=== PATIENT | male | born 1945 | race Caucasian/White ===

== ENCOUNTER 2020-04-09 07:12 | Day surgery (SDC) | payer OTHER ==
[~2020-04-09] VITALS: Ht 180.3 cm; Wt 68.4 kg
--- NOTE | 2020-04-09 07:59 | NUR ---
History, Chart, Medications and Allergies reviewed before start of procedure. Lungs clear T/O to Auscultation. Patient confirms NPO status and agrees with scheduled surgery. Pre-Op teaching done. Pt verbalizes understanding. Patient reports completing Chlorhexadine shower X2 prior to admission to hospital.
--- NOTE | 2020-04-09 12:17 | NUR ---
PATIENT GAVE PERMISSION TO GIVE CARE
--- NOTE | 2020-04-09 18:47 | NUR ---
PT ARRIVED TO THE ROOM AT APPROXIMATELY 1230. PT DROWSY BUT ORIENTED. HE RATED PAIN AT 5/10 BUT TOLERABLE. DRESSING C/D/I TO LEFT HIP. DENIED NAUSEA. RR EVEN AND UNLABORED. VSS.
--- NOTE | 2020-04-09 19:18 | NUR ---
SHIFT SUMMARY PT IS POD#0 FROM [place] WITH DR. CENTENO. PAIN HAS BEEN MANAGED WITH PO PAIN MEDICATION. PT WORKED WITH THERAPY, HE REPOTED PAIN IMPROVED AFTER THERAPY. PT TOLERATING PO AND ABLE TO VOID. VSS. REPORT GIVEN TO GOSIA BREWER.
[2020-04-10 04:25] LABS: BASOPHILS ABSOLUTE AUTO 0.01 K/mm3 (0.00-0.23); BASOPHILS PERCENT AUTO 0 % (0-2); EOSINOPHILS ABSOLUTE AUTO 0.03 K/mm3 (0.00-0.68); EOSINOPHILS PERCENT AUTO 0 % (0-6); Hematocrit 34.9 % (37.0-53.0); Hemoglobin 11.4 g/dL (13.5-17.5); IMMATURE GRAN ABSOLUTE AUTO 0.04 K/mm3 (0.00-0.10); IMMATURE GRAN PERCENT AUTO 0 % (0-1); LYMPHOCYTES ABSOLUTE AUTO 1.19 K/mm3 (0.84-5.20); LYMPHOCYTES PERCENT AUTO 10 % (21-46); MONOCYTES ABSOLUTE AUTO 1.23 K/mm3 (0.16-1.47); MONOCYTES PERCENT AUTO 11 % (4-13); Mean Corpuscular HGB 28.3 pg (26.0-34.0); Mean Corpuscular HGB Conc 32.7 g/dL (31.5-36.5); Mean Corpuscular Volume 87 fL (80-100); Mean Platelet Volume 10.9 fL (9.1-12.4); NEUTROPHILS ABSOLUTE AUTO 8.89 K/mm3 (1.96-9.15); NEUTROPHILS PERCENT AUTO 78 % (41-73); Platelet Count 132 K/mm3 (150-400); RDW Coefficient Variation 12.7 % (11.7-14.2); Red Blood Cell Count 4.03 M/mm3 (4.30-5.90); White Blood Cell Count 11.39 K/mm3 (4.00-11.30)
[2020-04-10 04:42] LABS: Anion Gap 5 mmol/L (6-16); Blood Urea Nitrogen 16 mg/dL (8-24); Bun/Creatinine Ratio 21.8 (12.0-20.0); CO2, Blood 28 mmol/L (21-32); Chloride, Blood 109 mmol/L (98-108); Creatinine, Blood 0.73 mg/dL (0.60-1.20); Glomerular Filtration Rate >60 (60-); Glucose, Blood 114 mg/dL (70-99); Sodium, Blood 142 mmol/L (136-145)
--- NOTE | 2020-04-10 06:35 | NUR ---
POD 1 S/P RIGHT JESSENIA. PT VSS T/O NIGHT. DRESSING CDI. PT REP PAIN MINIMAL, MGD W/SCHEDULED TYLENOL/TORADOL; OXYCODONE GIVEN X1. PT DANGELED AT SOB, BUT DECLINED OFFERS TO AMBULATE, STATES IS DOING ROM EXERCISES IN BED; EDUCATION PROVIDED. PT LAURIE REG PO, NO N/V, IS VOIDING CLEAR YELLOW URINE W/O DIFFICULTY. PLAN TO WORK W/PT THIS AM.
--- NOTE | 2020-04-10 07:51 | NUR ---
A&O X3, DENIES ANY NEED FOR PAIN MEDS AT THIS TIME, DSG C/D/I, CONT. TO MONITOR FOR ANY CHANGES.
--- NOTE | 2020-04-10 08:05 | NUR ---
04/10/20 0805 Rosi Helton VERIFICATIONS: EDIT CHART.
[2020-04-10] MEDS ORDERED: ACET500 PO (10:34)
[2020-04-10] MEDS ORDERED: ASPIR 8181 M1 PO (10:37)
[2020-04-10] MEDS ORDERED: OXYC5 PO (10:38)
--- NOTE | 2020-04-10 10:53 | NUR ---
OOB TO CHAIR, CLEARED TO GO HOME PER PT, DENIES ANY PAIN, DC INSTRUCTIONS GIVEN, VERBALIZED UNDERSTANDING, IV DC'D CATH INTACT, PT WAITING FOR RIDE HOME.
--- NOTE | 2020-04-10 13:14 | NUR ---
pt provided with discharge instructions, peripheral IV removed WNL. pt's belongings transferred with pt via wheelchair to awaiting vehicle.
== END 2020-04-10 13:00 | disposition home or self-care (01) ==
LOC: ORSCMMR 07:12 → ORD 07:30 → SURS 12:05 → ORSCMMR 04-10 13:00
PROVIDERS: Orthopaedic Surgery
PROC: 0SRB06Z Replacement of Left Hip Joint with Oxidized Zirconium on Polyethylene Synthetic Substitute, Open Approach (ICD-10-PCS; principal; 2020-04-09 07:30)
DX: M16.12 Unilateral primary osteoarthritis, left hip (principal)
CPT/HCPCS: 36415; 72170; 80048; 83735; 85025; 88300; 97110; 97116; 97162; A9270; C1776; J0171; J0690; J0735; J1100; J1885; J2250; J2370; J2405; J2550; J2704; J2795; J3010; J7120

== ENCOUNTER 2021-01-12 18:13 | Emergency (ER) | payer OTHER ==
[~2021-01-12] VITALS: Ht 177.8 cm; Wt 63.5 kg
[~2021-01-12 18:13] MED LIST: ACET500 PO; ASPIR 8181 M1 PO; OXYC5 PO
== END 2021-01-12 21:30 | disposition home or self-care (01) ==
LOC: ER 18:13
DX: K59.00 Constipation, unspecified (principal)
CPT/HCPCS: 99283

== ENCOUNTER 2021-02-08 16:04 | Inpatient (IN) | payer OTHER ==
[~2021-02-08] VITALS: Ht 177.8 cm; Wt 63.5 kg
[2021-02-08] MEDS ORDERED: MS CONTIN30 M6 PO (17:00)
[2021-02-08] MEDS ORDERED: NARCAN4 M1 (17:00)
[2021-02-08] MEDS ORDERED: OXYCODONE-ACET1 EAC2 PO (17:00)
[2021-02-08 17:01] LABS: BASOPHILS ABSOLUTE AUTO 0.02 K/mm3 (0.00-0.23); BASOPHILS PERCENT AUTO 0 % (0-2); EOSINOPHILS PERCENT AUTO 0 % (0-6); Hematocrit 31.8 % (37.0-53.0); Hemoglobin 10.5 g/dL (13.5-17.5); IMMATURE GRAN ABSOLUTE AUTO 0.17 K/mm3 (0.00-0.10); IMMATURE GRAN PERCENT AUTO 1 % (0-1); LYMPHOCYTES PERCENT AUTO 2 % (21-46); MONOCYTES ABSOLUTE AUTO 1.81 K/mm3 (0.16-1.47); MONOCYTES PERCENT AUTO 8 % (4-13); Mean Corpuscular HGB 24.9 pg (26.0-34.0); Mean Corpuscular Volume 75 fL (80-100); NEUTROPHILS ABSOLUTE AUTO 19.29 K/mm3 (1.96-9.15); NEUTROPHILS PERCENT AUTO 89 % (41-73); Platelet Count 419 K/mm3 (150-400); RDW Coefficient Variation 14.4 % (11.7-14.2); RDW Standard Deviation 38.7 fL (35.1-46.3); Red Blood Cell Count 4.22 M/mm3 (4.30-5.90); White Blood Cell Count 21.79 K/mm3 (4.00-11.30)
[2021-02-08 17:09] LABS: International Normalized Ratio 1.28; Prothrombin Time Results 13.2 Sec (9.7-11.5)
[2021-02-08 17:20] LABS: Alanine Aminotransfer (ALT/SGP 62 U/L (12-78); Albumin, Blood 1.8 g/dL (3.4-5.0); Albumin/Globulin Ratio 0.3 (0.8-1.8); Alk Phos 180 U/L (50-136); Anion Gap 6 mmol/L (6-16); Aspartate Aminotrans (AST/SGOT 85 U/L (12-37); Bilirubin, Total 0.5 mg/dL (0.1-1.0); Blood Urea Nitrogen 26 mg/dL (8-24); Bun/Creatinine Ratio 33.1 (12.0-20.0); CO2, Blood 28 mmol/L (21-32); Calcium, Blood 8.7 mg/dL (8.5-10.1); Chloride, Blood 93 mmol/L (98-108); Creatinine, Blood 0.79 mg/dL (0.60-1.20); Globulin, Blood 5.2 g/dL (2.2-4.0); Glomerular Filtration Rate >60 (60-); Glucose, Blood 149 mg/dL (70-99); Potassium, Blood 4.9 mmol/L (3.5-5.5); Sodium, Blood 127 mmol/L (136-145)
[2021-02-08 17:30] LABS: Influenza A, PCR NEGATIVE (NEGATIVE); Influenza B, PCR NEGATIVE (NEGATIVE); Resp Syncytial Virus, PCR NEGATIVE (NEGATIVE); SARS-Cov-2 (COVID-19) PCR, MMC NEGATIVE (NEGATIVE)
[2021-02-08 18:07] LABS: Source, Urine Catheter
[2021-02-08 18:10] LABS: Bilirubin, Urine Neg (Neg); Blood, Urine 5+ (Neg); Color, Urine Amber (P-Yellow); Glucose Qualitative, Urine Neg (Neg); Ketones, Urine Neg (Neg); Leukocyte Esterase, Urine 1+ (Neg); Nitrite, Urine Neg (Neg); Protein, Urine 2+ (Neg); Specific Gravity, Urine 1.025 (1.003-1.022); Urobilinogen, Urine 1+ (Normal)
[2021-02-08 18:40] LABS: Appearance, Urine Hazy (Clear)
[2021-02-08 18:42] LABS: Amorphous Light (0-Heavy); Bacteria Mod /hpf; Mucus Light (0-Heavy); Squamous Epithelial Cells Rare /hpf (Few)
[2021-02-08 18:43] LABS: Hyaline Casts 0-2 /lpf (0-2)
[2021-02-09 04:35] LABS: Hematocrit 29.1 % (37.0-53.0); Hemoglobin 9.4 g/dL (13.5-17.5); Mean Corpuscular HGB 24.7 pg (26.0-34.0); Mean Corpuscular HGB Conc 32.3 g/dL (31.5-36.5); Mean Corpuscular Volume 76 fL (80-100); Mean Platelet Volume 9.2 fL (9.1-12.4); Platelet Count 377 K/mm3 (150-400); RDW Coefficient Variation 14.5 % (11.7-14.2); RDW Standard Deviation 39.8 fL (35.1-46.3); Red Blood Cell Count 3.81 M/mm3 (4.30-5.90); White Blood Cell Count 19.59 K/mm3 (4.00-11.30)
[2021-02-09 04:50] LABS: Alanine Aminotransfer (ALT/SGP 58 U/L (12-78); Albumin, Blood 1.7 g/dL (3.4-5.0); Albumin/Globulin Ratio 0.4 (0.8-1.8); Alk Phos 157 U/L (50-136); Anion Gap 9 mmol/L (6-16); Aspartate Aminotrans (AST/SGOT 69 U/L (12-37); Bilirubin, Total 0.6 mg/dL (0.1-1.0); Blood Urea Nitrogen 24 mg/dL (8-24); Bun/Creatinine Ratio 34.2 (12.0-20.0); CO2, Blood 27 mmol/L (21-32); Calcium, Blood 8.7 mg/dL (8.5-10.1); Chloride, Blood 95 mmol/L (98-108); Globulin, Blood 4.6 g/dL (2.2-4.0); Glomerular Filtration Rate >60 (60-); Glucose, Blood 120 mg/dL (70-99); Potassium, Blood 4.4 mmol/L (3.5-5.5); Sodium, Blood 131 mmol/L (136-145); Total Protein, Blood 6.3 g/dL (6.4-8.2)
--- NOTE | 2021-02-09 13:48 | NUR ---
Pt resting in bed with his eyes closed. Pt wakes to gentle verbal stimuli. Pt reports 4/10 pain in his back. Pt denies anxiety. Pt appears mildy dyspneic as evidenced by speaking in 2 to 3 word sentences and work of breathing during conversation. Pt reports no being and has children but has not been in contact with in quite some time. He does not wish to elaborate or have further conversations regarding family. He reports having a friend that comes and checks in on him. Pt appears elusive when sharing personal information. Listened as Pt reports no about the cancer since mid summer and has been waiting on specialist with answers and recommendations. Pt does report plan to pursue treatment if treatment option is available. Pt agreeable for continued visits. Ended visit to allow Pt to rest. Palliative Care will remain available.
--- NOTE | 2021-02-09 17:08 | NUR ---
Pt is A&O4, forgetful at times. IV fluids running at 100ml/hr NS. IV abx continued per orders. VSS on 6-8L, titrated down to 6L sating low-mid 90s. Pt hasn't been able to produce sputum sample yet to send, specimen container at bedside. Palliative care RN visited with pt, pt didn't want to talk much about home situation and goals. Palliative will visit with pt again tomorrow. Pt JUSTO Piedra) visited today and was updated. Tele: sinus tach 90-100s.
[2021-02-10 04:40] LABS: BASOPHILS ABSOLUTE AUTO 0.02 K/mm3 (0.00-0.23); BASOPHILS PERCENT AUTO 0 % (0-2); EOSINOPHILS ABSOLUTE AUTO 0.03 K/mm3 (0.00-0.68); EOSINOPHILS PERCENT AUTO 0 % (0-6); Hematocrit 28.3 % (37.0-53.0); Hemoglobin 8.9 g/dL (13.5-17.5); IMMATURE GRAN ABSOLUTE AUTO 0.17 K/mm3 (0.00-0.10); IMMATURE GRAN PERCENT AUTO 1 % (0-1); LYMPHOCYTES ABSOLUTE AUTO 0.66 K/mm3 (0.84-5.20); LYMPHOCYTES PERCENT AUTO 3 % (21-46); MONOCYTES ABSOLUTE AUTO 1.71 K/mm3 (0.16-1.47); MONOCYTES PERCENT AUTO 8 % (4-13); Mean Corpuscular HGB 24.5 pg (26.0-34.0); Mean Corpuscular HGB Conc 31.4 g/dL (31.5-36.5); Mean Corpuscular Volume 78 fL (80-100); Mean Platelet Volume 9.2 fL (9.1-12.4); NEUTROPHILS ABSOLUTE AUTO 19.67 K/mm3 (1.96-9.15); NEUTROPHILS PERCENT AUTO 88 % (41-73); Platelet Count 370 K/mm3 (150-400); RDW Coefficient Variation 14.6 % (11.7-14.2); RDW Standard Deviation 41.4 fL (35.1-46.3); Red Blood Cell Count 3.63 M/mm3 (4.30-5.90); White Blood Cell Count 22.26 K/mm3 (4.00-11.30)
[2021-02-10 05:41] LABS: Alanine Aminotransfer (ALT/SGP 55 U/L (12-78); Albumin, Blood 1.8 g/dL (3.4-5.0); Albumin/Globulin Ratio 0.4 (0.8-1.8); Alk Phos 167 U/L (50-136); Anion Gap 11 mmol/L (6-16); Aspartate Aminotrans (AST/SGOT 60 U/L (12-37); Bilirubin, Total 0.5 mg/dL (0.1-1.0); Blood Urea Nitrogen 22 mg/dL (8-24); Bun/Creatinine Ratio 39.6 (12.0-20.0); CO2, Blood 24 mmol/L (21-32); Calcium, Blood 8.3 mg/dL (8.5-10.1); Chloride, Blood 99 mmol/L (98-108); Creatinine, Blood 0.56 mg/dL (0.60-1.20); Glomerular Filtration Rate >60 (60-); Glucose, Blood 132 mg/dL (70-99); Potassium, Blood 4.7 mmol/L (3.5-5.5); Sodium, Blood 134 mmol/L (136-145); Total Protein, Blood 5.8 g/dL (6.4-8.2)
[2021-02-10 05:46] LABS: C-REACTIVE PROTEIN, EXT RANGE >19.000 mg/dL (0.000-0.300)
--- NOTE | 2021-02-10 15:06 | NUR ---
Met with Pt's JUSTO James in PC office and discussed plan to present options for Pt. Offered therapeutic listening and answered questions. Jacob reports that hospice would be appropriate but would also like to allow Pt to make decision on whether to pursue cancer treament or hospice. Pt resting in bed upon arrival. Primary RN Blade offering pain medication. Engaged in therapeutic discussion regarding goals of care including options. Gentle and brief edcuation regarding hospice philosophy. Jacob assists with directing Pt to stay on topic and to give direct answers. Pt does appear to understand options presented to him just appears to be slow in response. After a lengthy discussion Pt reports wishes to obtain more information and would like to wait for Dr Bassett's input and results of biopsy obtained from urology last week. Offered therapeutic listening and answered questions. Ended visit to allow Pt to visit withsaul James. Spoke with Dr Dupree and discussed case. Palliative Care will remain available for supportive and therapeutic visits.
--- NOTE | 2021-02-10 16:53 | NUR ---
SHIFT SUMMARY PT HAS BEEN RESTING IN BED FOR THE MAJORITY OF THE DAY. THERAPIES GOT THE PT UP TO THE CHAIR FOR A SHORT PERIOD OF TIME, UNTIL THE PT REQUESTED ASSISTANCE TO RETURN TO BED. PT CONTINUALLY CALLS FOR PAIN MEDICATION, EVEN MINUTES AFTER RECIEVING PAIN MANAGEMENT MEDICATION. PT IS FORGETFUL, FREQUENT REMINDING OF THE LAST DOSE OF MEDICATION AND THE TIME THAT THE NEXT DOSE IS AVAILABLE HAS BEEN REQUIRED. PT IS A&O X4, SOME CONVERSATION IS OUT OF CONTEXT BUT INTELLIGBLE. PT HAS REMAINED >93% SpO2 ON 6L NC. NO ACUTE CHANGES TO CONDITION.
[2021-02-11 05:04] LABS: BASOPHILS ABSOLUTE AUTO 0.03 K/mm3 (0.00-0.23); BASOPHILS PERCENT AUTO 0 % (0-2); EOSINOPHILS ABSOLUTE AUTO 0.02 K/mm3 (0.00-0.68); EOSINOPHILS PERCENT AUTO 0 % (0-6); Hematocrit 27.1 % (37.0-53.0); Hemoglobin 8.5 g/dL (13.5-17.5); IMMATURE GRAN ABSOLUTE AUTO 0.14 K/mm3 (0.00-0.10); IMMATURE GRAN PERCENT AUTO 1 % (0-1); LYMPHOCYTES ABSOLUTE AUTO 0.39 K/mm3 (0.84-5.20); LYMPHOCYTES PERCENT AUTO 2 % (21-46); MONOCYTES ABSOLUTE AUTO 1.29 K/mm3 (0.16-1.47); MONOCYTES PERCENT AUTO 7 % (4-13); Mean Corpuscular HGB 24.4 pg (26.0-34.0); Mean Corpuscular HGB Conc 31.4 g/dL (31.5-36.5); Mean Corpuscular Volume 78 fL (80-100); Mean Platelet Volume 9.3 fL (9.1-12.4); NEUTROPHILS ABSOLUTE AUTO 17.36 K/mm3 (1.96-9.15); NEUTROPHILS PERCENT AUTO 90 % (41-73); Platelet Count 376 K/mm3 (150-400); RDW Coefficient Variation 14.9 % (11.7-14.2); RDW Standard Deviation 41.7 fL (35.1-46.3); Red Blood Cell Count 3.48 M/mm3 (4.30-5.90); White Blood Cell Count 19.23 K/mm3 (4.00-11.30)
[2021-02-11 05:24] LABS: Alanine Aminotransfer (ALT/SGP 48 U/L (12-78); Albumin, Blood 1.6 g/dL (3.4-5.0); Albumin/Globulin Ratio 0.4 (0.8-1.8); Alk Phos 155 U/L (50-136); Anion Gap 7 mmol/L (6-16); Aspartate Aminotrans (AST/SGOT 48 U/L (12-37); Bilirubin, Total 0.4 mg/dL (0.1-1.0); Blood Urea Nitrogen 21 mg/dL (8-24); Bun/Creatinine Ratio 42.8 (12.0-20.0); CO2, Blood 29 mmol/L (21-32); Calcium, Blood 8.6 mg/dL (8.5-10.1); Chloride, Blood 102 mmol/L (98-108); Creatinine, Blood 0.49 mg/dL (0.60-1.20); Globulin, Blood 4.4 g/dL (2.2-4.0); Glomerular Filtration Rate >60 (60-); Glucose, Blood 129 mg/dL (70-99); Phosphorus, Blood 3.3 mg/dL (2.5-4.9); Potassium, Blood 4.2 mmol/L (3.5-5.5); Sodium, Blood 138 mmol/L (136-145)
--- NOTE | 2021-02-11 16:35 | NUR ---
Joint visit with Dr Dupree, this RN, and Primary RN Lakisha. Dr Dupree discusses results of CT which show chet to the brain. Dr Dupree discusses the plan to continue treating the pneumonia and the importance of considering comfort care and hospice. This RN educates on comfort care philosophy. Pt's POA Maira (Jacob) and OSMAN Banuelos report Pt has been hallucinating. Pt's confusion has also increased. Pt remains silent during visit. Maira requests to speak to Dr Conti before making the decision for comfort care. Lakisha will call Dr Bassett's office with Maira's request. Palliative Care will remain available.
--- NOTE | 2021-02-11 17:53 | NUR ---
SHIFT SUMMARY PT [place], A&O TO SELF & FAMILY, DISORIENTED TO PLACE & TIME. PT W/ CONFUSION PROGRESSING T/O SHIFT & NEWLY HALLUCINATING. PT GRABBING INVISIBLE ITEMS, WRAPPING ITEMS IN FIGURATIVE BALL, THEN MAKING GESTURES IF TOSSING ITEMS. PT SITTING UP AT EDGE OF BED, ABLE TO HAVE SIMPLE DISCUSSIONS & USE URINAL APPROPRIATELY UPON CARE ASSUMPTION. T/O SHIFT PT GETTING UP, SETTING OFF BED ALARM FREQUENTLY. PT FOUND UNSTEADY ON FEET, STANDING IN RM AT BEDSIDE, PULLING AT OXYGEN ON WALL. MD ESCOBEOD W/ ORDER FOR KENNY VEST RESTRAINT. MD CENTENO IN TO SEE PT TODAY W/ NEW ORDER FOR HEAD CT. HEAD CT DONE. MD ISTRATE & PALLIATIVE CARE RN EVELIA IN TO PT TO DISCUSS RESULTS W/ PT & PT S/O AT BEDSIDE. PT S/O WISHING TO SPEAK W/ MD CENTENO BEFORE CHANGING CODE STATUS &/OR PROGRESSING TO COMFORT CARE OR HOSPICE. MD CENTENO NOTIFIED OF PT S/O REQUEST. PT CONFUSION INCREASING, PT NO LONGER CONTINENT, SOILING ATTENDS & BECOMING AGGITATED W/ CARE. PRN ATIVAN AVAILABLE PER EMAR, GIVEN X2 THIS SHIFT W/ SOME IMPROVEMENT. SPO2 > 90% ON 10L HI-KASSY NC. TELEMETRY SHOWING ST, HR 100-120's. BED ALARM/TAB ALARM ON T/O SHIFT. PT S/O REMAINS AT BEDSIDE.
--- NOTE | 2021-02-11 19:18 | NUR ---
COMFORT CARE MD CENTENO SPOKE W/ PT S/O JA. PT NOW COMFORT CARE STATUS.
--- NOTE | 2021-02-11 21:42 | NUR ---
PT ARRIVED ON THE UNIT VIA BED WITH FAMILY PRESENT. PT. APPEARS TO BE SOB AND WANTED MORE BLANKETS. PT WAS WARM TO TOUCH AND GRUGLING SECRETIONS NOTICED. MEDICATIONS RUNNING PER EMAR AND PT. ADJUSTED FOR COMFORT. WILL CONTINUE TO MONITOR THIS SHIFT.
--- NOTE | 2021-02-11 23:23 | NUR ---
PT. FOUND ON THE FLOOR BY STAFF WHILE THIS NURSE WAS ASSITING ANOTHER PT. WITH LUMP RECEIVER. PT. HAD FAMILY IN THE ROOM PRIOR TO THE FALL AND STAFF NOTICED BED ALARM WAS TURNED OFF, AFTER BEING PLACE ON AND VEST RESTRAINT APPLIED. IT WAS REPORT ONE SIDE OF VEST WAS STILL TIED WHEN PT WAS FOUND. PT. VERY CONFUSED AND HAS SLURRED SPEECH WHILE SOB STILL. NO INJURIES NOTICED UPON ASSESSMENT AND VITAL SIGNS TAKEN. CHARGE NURSE AWARE OF FALL AND ASSITING THIS NURSE. WILL CONTINUE TO MONITOR.
--- NOTE | 2021-02-12 05:10 | NUR ---
PT. WAS RESTLESS MOST OF THIS SHIFT AND AGITATED. PT. WAS MEDICATED PER EMAR AND FINALLY ABLE REST WITH RELAXED BREATHING. HOWEVER, GRUGLING IS STILL HEARD STANDING AT THE BEDSIDE. PT. RESTING AT THE MOMENT WITH RISE AND FALL OF CHEST WITH SNORING HEARD. COMFORT CARE IN PLACE AND THIS NURSE WILL CONTINUE TO MONITOR UNTIL REPORT IS GIVING.
--- NOTE | 2021-02-12 09:37 | NUR ---
Comfort Care Visit Pt resting in bed with his eyes closed and wearing a KENNY. Pt left undisturbed and appears comfortable with no S/S of distress at this time. Spoke with Pt's Primary RNs Jose and Fatou. Pt fell last night, has been experiencing anxiety. Reviewed medications. Jose reports Pt not appropriate to take his maintenance PO meds at this time. Plan to re-evaluate Pt and if he does not improve mentation then consider D/C maintenance PO medications.
--- NOTE | 2021-02-12 14:00 | NUR ---
F/U visit. Pt resting in bed and appears lethargic and frail. Pt coughing secretions. Pt's friend (POA) Maira at [facility]. She reports attemptin to give Pt water and food. Educated Maira on the dying process and the importance of not forcing food and fluids. Offered therapeutic listening and answered questions. Spoke with Primary RN Jose and discussed case. Jose will offer scopolamine patch. Palliative Care will remain available.
--- NOTE | 2021-02-12 18:29 | NUR ---
PATIENT FOUND AGONAL BREATHING WITH NO HEARTBEAT. TIME OF CALLED AT 1822. CHARGE NURSE, NURSE MECHANICAL COMMISSIONING ENGINEER, PHYSICIAN, AND POA/SIG OTHER JA ALL NOTIFIED. JA IS ENROUTE TO SEE PATIENT.
== END 2021-02-12 18:22 | DRG 871 ==
LOC: ER 16:04 → ERHOLD 21:30 → PCU 21:30 → MEDS 21:30 → PCU 23:08 → MEDS 02-11 21:19
PROVIDERS: Family Medicine; Physician Assistant; ADMIT Internal Medicine
DX: A41.9 Sepsis, unspecified organism (principal); J18.9 Pneumonia, unspecified organism; J96.21 Acute and chronic respiratory failure with hypoxia; E87.1 Hypo-osmolality and hyponatremia; E44.0 Moderate protein-calorie malnutrition; C78.7 Secondary malignant neoplasm of liver and intrahepatic bile duct; M48.54XA Collapsed vertebra, not elsewhere classified, thoracic region, initial encounter for fracture; M48.56XA Collapsed vertebra, not elsewhere classified, lumbar region, initial encounter for fracture; C79.31 Secondary malignant neoplasm of brain; R64 Cachexia; C78.00 Secondary malignant neoplasm of unspecified lung; C79.51 Secondary malignant neoplasm of bone; C77.1 Secondary and unspecified malignant neoplasm of intrathoracic lymph nodes; Z51.5 Encounter for palliative care; Z66 Do not resuscitate; Z78.1 Physical restraint status; Z20.822 Contact with and (suspected) exposure to COVID-19; M19.90 Unspecified osteoarthritis, unspecified site; M54.9 Dorsalgia, unspecified; G89.29 Other chronic pain; K59.00 Constipation, unspecified; C73 Malignant neoplasm of thyroid gland; Z96.642 Presence of left artificial hip joint; R62.7 Adult failure to thrive; Z90.89 Acquired absence of other organs; Z68.20 Body mass index [BMI] 20.0-20.9, adult; Z79.82 Long term (current) use of aspirin; Z79.899 Other long term (current) drug therapy
CPT/HCPCS: 0241U; 36415; 70470; 71045; 71260; 80053; 81001; 83605; 83735; 84100; 84145; 85025; 85027; 85610; 85730; 86140; 87040; 87070; 87077; 87086; 87186; 87205; 93005; 93010; 94640; 94760; 96365; 96366; 96367; 96375; 97110; 97162; 97165; 97530; 99285-25; A9270; J0456; J0696; J1170; J1650; J2060; J2405; J2543; J3010; J7030; J7050; Q9967